=== PATIENT | male | born 1975 | race Caucasian/White ===

== ENCOUNTER 2020-03-07 11:22 | Emergency (ER) | payer OTHER, SELFPAY ==
[2020-03-07 11:34] VITALS: BP 131/88; PULSE 109; RESP 18; TEMP 36.6; O2SAT 98
--- NOTE | 2020-03-07 11:39 | ED.MALEGU ---
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 Patient states he was treated twice in the recent past for mild urinary frequency and testicular discomfort, with routine courses of Septrax2. He complains of a weeklong history of bilateral, right > left inguinal testicular discomfort , after initial complete improvement with antibiotics 3 weeks ago. His GI- history is remarkable that he gets your yearly colonoscopies for polyps and has been told he has anal fissure-for which he would like pain cream refill. No fever, LBP, dysuria, discharge, sexual activity. Record review [by phoning PMD] indicates that his initial urinalysis was negative, culture was not done. Patient advised to follow-up with urology as scheduled and his PMD Related Data Allergies Allergy/AdvReac Type Severity Reaction Status Date / Time No Known Allergies Allergy Verified 03/07/20 11:39 Review of Systems Review of Systems: Narrative: General/Constitutional: No weight loss,fever Eyes: N0: Redness,discharge Ears/Nose/Throat: No: Epistaxis,ear discharge Respiratory: Denies: Hemoptysis Gastrointestinal: No Vomiting, Bleeding-rectal Skin: No Lumps, eruption Neurologic: No Focal Weakness,Sz Hematologic: Denies: Petechiae/Purpura Psychiatric: No: Suicida ideationl All Other Systems: Reviewed and Negative PMFSH Comments At time of signature, agree with nursing past medical, surgical, social and family history. There is no relevant family history pertinent to the presenting complaint Exam Narrative: Exam Narrative: General Appearance: Well appearing, Conjunctiva clear Ears: External ear normal Nose: Normal nose Mouth/Throat: Normal appearing, Normal lips Neck: Supple Respiratory: Airway patent, No respiratory distress Cardiovascular: RRR GI-: Soft, Non-tender; bilateral descended testicles, circumcised phallus, no inguinal hernia, testes nontender, no IH Musculoskeletal: Full ROM Skin: Warm, Dry, only scant inguinal nodes; old midline healing anal fissure Neurological: A&O x3, Normal affect, sl anxious mood Course Vital Signs Vital signs: Vital Signs Temperature 97.8 F 03/07/20 11:34 Pulse Rate 109 H 03/07/20 11:34 Respiratory Rate 18 03/07/20 11:34 Blood Pressure 131/88 03/07/20 11:34 Pulse Oximetry 98 03/07/20 11:34 Temperature 97.8 F 03/07/20 11:34 Pulse Rate 109 H 03/07/20 11:34 Respiratory Rate 18 03/07/20 11:34 Blood Pressure 131/88 03/07/20 11:34 Pulse Oximetry 98 03/07/20 11:34 MDM - Male Genitourinary Lab Data Labs: Urine Glucose Negative Reference Range: Negative Urine Bilirubin Negative Reference Range: Negative Urine Ketone Negative Reference Range: Negative Urine Specific [place] 1.015 Reference Range:1.001-1.035 Urine Blood Negative Reference Range: Negative * * Urine pH 6.0 Reference Range: 5.0-9.0 Urine Protein Negative Reference Range: Negative Urine Urobilinogen 0.2 Reference Range: 0.2-1.0 Urine Nitrate Negative Reference Range: Negative
== END 2020-03-07 12:39 | disposition home or self-care (01) ==
PROVIDERS: Emergency Provider Emergency Medicine; PCP Family Medicine
DX: K60.2 Anal fissure, unspecified (principal); N50.811 Right testicular pain
CPT/HCPCS: 81003; 87086; 99213; G0463

== ENCOUNTER 2021-07-25 17:56 | Emergency (ER) | payer OTHER, SELFPAY ==
[2021-07-25 17:59] VITALS: BP 109/70; PULSE 78; RESP 14; TEMP 37; O2SAT 100
[2021-07-25 18:36] LABS: Basophils Percent Auto 0.6 % (0.2-1.2); Eosinophils Absolute Auto 0.2 K/mm3 (0-0.3); Eosinophils Percent Auto 3.9 % (0-4.4); Hematocrit 43.5 % (42.0-52.0); Hemoglobin 14.4 g/dL (14.0-18.0); Immature Granulocyte Absolute 0.01 K/mm3 (0.00-0.031); Immature Granulocyte Percent A 0.2 % (0-0.5); Lymphocytes Absolute Auto 1.34 K/mm3 (0.9-3.2); Lymphocytes Percent Auto 26.1 % (18.3-44.2); Mean Corpuscular HGB Conc 33.1 g/dl (32-36); Mean Corpuscular Hemoglobin 28.1 pg (26-34); Mean Platelet Volume 8.4 fl (7.4-10.4); Monocytes Absolute Auto 0.9 K/mm3 (0.1-0.6); Monocytes Percent Auto 17.7 % (2.6-8.5); Neutrophils Absolute Auto 2.7 K/mm3 (1.3-6.7); Neutrophils Percent Auto 51.5 % (45.5-73.1); Platelet Count Result 379 k/mm3 (150-375); Red Blood Count 5.12 M/mm3 (4.6-6.20); Red Cell Distribution Width 13.3 % (11.5-14.5); White Blood Count 5.1 K/mm3 (4.5-10.0)
[2021-07-25 18:46] LABS: Alanine Aminotransferase 33 U/L (4-50); Albumin Level 4.4 g/dL (3.5-5.1); Alkaline Phosphatase 130 U/L (38-126); Anion Gap 8 mmol/L (8-16); Aspartate Amino Transferase 24 U/L (17-59); Bilirubin,Total 0.5 mg/dL (0.2-1.3); Blood Urea Nitrogen 8 mg/dL (9-20); Calcium 8.9 mg/dL (8.4-10.2); Carbon Dioxide 23 mmol/L (22-30); Chloride 102 mmol/L (98-107); Estimated CRCL calculation 96 ml/min; Estimated Glomerular Filt Rate > 60; Glucose 108 mg/dL (65-110); Lipase 34 U/L (23-300); Potassium 3.6 mmol/L (3.4-5.0); Sodium 133 mmol/L (137-145)
--- NOTE | 2021-07-25 19:08 | ED.NAVMDI ---
HPI - Nausea/Vomiting/Diarrhea General Chief complaint: Nausea/Vomiting/Diarrhea Stated complaint: abdominal pain, n/v/d Time Seen by Provider: 07/25/21 18:41 Source: patient Mode of arrival: ambulatory Limitations: no limitations History of Present Illness HPI Narrative: 46-year-old male presents today with complaints of diarrhea. Patient states 3 to 4 days ago he was constipated and took 3 laxatives. Patient is unsure of which laxative it was. He thinks it was either pink or red in color. Prior to laxatives working patient had a bowel movement on his own. Next morning he woke up and had multiple episodes of diarrhea. And has since then. Patient has noted decreased appetite. Denies any vomiting today. And denies abdominal pain. Patient denies cough, runny nose, sore throat, fevers, but after some thought endorses contact with mother who just was diagnosed with gastroenteritis. Patient denies any abdominal surgeries. Related Data Allergies Allergy/AdvReac Type Severity Reaction Status Date / Time No Known Allergies Allergy Verified 07/25/21 19:42 Review of Systems Review of Systems: CONSTITUTIONAL: Denies fever, chills, or sweats. EYES: Denies visual changes, redness, or discharge. ENT: Denies rhinorrhea, congestion, sore throat, or otalgia. CARDIOVASCULAR: Denies chest pain, palpitations, or edema. RESPIRATORY: Denies cough or dyspnea. GASTROINTESTINAL: Diarrhea. Pain and cramping with bowel movement. Decreased oral intake. Denies vomiting, or diarrhea. GENITOURINARY: Denies dysuria or hematuria. SKIN: Denies rash or itching. MUSCULOSKELETAL: Denies back pain, joint pain, or myalgia. NEUROLOGIC: Denies headache, numbness, dizziness, or weakness. PSYCHIATRIC: Denies anxiety or depression. Exam Narrative: GENERAL: Well-appearing, well-nourished, and in no acute distress. HEAD: Normocephalic, atraumatic. EYES: PERRLA and EOMI. ENT: Nares clear, no rhinorrhea or epistaxis. Mucous membranes moist. Oropharynx without tonsillar hypertrophy exudate or other lesions. Bilateral TMs pearly hough nonbulging NECK: Supple. No adenopathy or masses. No carotid bruits or JVD CHEST: Clear to auscultation. No respiratory distress. No wheezes rales or rhonchi HEART: Regular rate and rhythm. No murmur heard. Normal peripheral pulses. ABDOMEN: Soft, nontender, nondistended, normal active bowel sounds. EXTREMITIES: Normal range of motion. No edema. SKIN: Warm, dry, no rash. NEURO: No focal deficits. Alert and oriented x3. PSYCH: Normal mood and affect. Course Course Emergency Course: Patient improved after IV fluids and medication. Patient wanting food at current time. Patient to be discharged home or to push fluids. Zofran as needed for nausea. And diet as tolerated. Patient instructed to return with any new or worsening symptoms. Vital Signs Vital signs: Vital Signs Temperature 37.0 C 07/25/21 17:59 Pulse Rate 78 07/25/21 17:59 Respiratory Rate 14 07/25/21 17:59 Blood Pressure 109/70 07/25/21 17:59 Pulse Oximetry 100 07/25/21 17:59 Temperature 37.0 C 07/25/21 17:59 Pulse Rate 93 07/25/21 21:36 Respiratory Rate 18 07/25/21 21:36 Blood Pressure 115/70 07/25/21 21:36 Pulse Oximetry 100 07/25/21 21:36 MDM - Nausea/Vomiting/Diarrhea Differential Diagnosis Differential diagnosis: Likely traveler's diarrhea, gastroenteritis, dehydration and other (Medication reaction) Medical Records Attestation: I reviewed the patient's medical records. Lab Data Result diagrams: 07/25/21 18:15 07/25/21 18:15 Labs: Lab Results 07/25/21 07/25/21 07/25/21 Range/Units 18:15 18:15 19:44 WBC 5.1 (4.5-10.0) K/mm3 RBC 5.12 (4.6-6.20) M/mm3 Hgb 14.4 (14.0-18.0) g/dL Hct 43.5 (42.0-52.0) % MCV 85.0 (80-100) fl MCH 28.1 (26-34) pg MCHC 33.1 (32-36) g/dl RDW 13.3 (11.5-14.5) % Plt Count 379 H (150-375) k/mm3 MPV 8.4 (7.4-10.4)
[2021-07-25 19:36] VITALS: BP 122/79; PULSE 86; RESP 18; O2SAT 100
[2021-07-25] MEDS: LACTATED RINGERS 1,000 ML 999 ML IV CONT (19:42)
[2021-07-25 20:12] LABS: Add Urine Microscopic? YES; Appearance Urine Cloudy (Clear); Bilirubin Urine Negative (Negative); Blood Urine Negative (Negative); Color Urine Yellow (Yellow); Glucose Urine UA Negative (Negative); Ketones Urine Negative (Negative); Leukocyte Esterase Ur Negative LEU/UL (Negative); Mucus Urine Rare /lpf; Nitrate Urine Negative (Negative); Protein Urine Negative (Negative); RBC Urine 0-2 /hpf (0-2); Specific Grav Ur 1.018 (1.001-1.035); Urobilinogen Urine Negative mg/dL (<2.0); WBC Urine 0-3 /hpf
[2021-07-25] MEDS: ONDANSETRON INJ 4 MG/2 ML VIAL IV PUSH (20:37)
[2021-07-25] MEDS: KETOROLAC 15 MG/ML VIAL (*BKC) IV PUSH (20:37)
[2021-07-25 20:57] VITALS: BP 113/73; PULSE 99; RESP 17; O2SAT 100
[2021-07-25 21:36] VITALS: BP 115/70; PULSE 93; RESP 18; O2SAT 100
== END 2021-07-25 21:38 | disposition home or self-care (01) ==
PROVIDERS: Emergency Medicine; Emergency Provider Nurse Practitioner Family
DX: K52.9 Noninfective gastroenteritis and colitis, unspecified (principal)
CPT/HCPCS: 36415; 80053; 81001; 83690; 85025; 96361; 96374; 96375; 99284; J1885; J2405; J7120

== ENCOUNTER 2022-10-21 16:19 | Emergency (ER) | payer BC, OTHER, SELFPAY ==
[2022-10-21 16:21] VITALS: BP 114/71; PULSE 88; RESP 16; TEMP 36.4; O2SAT 100
--- NOTE | 2022-10-21 16:29 | ED.SKABFB ---
HPI - Skin/Abscess/Foreign Bdy General Chief complaint: Skin/Abscess/Foreign Body Stated complaint: Insect Bite Rt Forearm Time Seen by Provider: 10/21/22 16:27 Source: patient and RN notes reviewed Mode of arrival: ambulatory Limitations: dementia History of Present Illness HPI narrative: 47-year-old male presents with concern for a brown recluse spider bite. He reports he was killing brown recluse spiders yesterday, later in the day he noticed a red, tender, warm area on his right forearm. He denies black skin, fever, aches, chills, sweats, fatigue, joint pain. He denies any drainage from the bite area. He reports he has been applying ice MD complaint: insect bite/sting Related Data Allergies Allergy/AdvReac Type Severity Reaction Status Date / Time No Known Allergies Allergy Verified 10/21/22 16:19 Review of Systems Review of Systems: CONSTITUTIONAL: Denies malaise, chills, sweats, or fever. EYES: Denies redness, or discharge. ENT: Denies rhinorrhea, congestion, swollen lips, swollen tongue CARDIOVASCULAR: Denies chest pain, palpitations, or edema. RESPIRATORY: Denies cough or dyspnea. GASTROINTESTINAL: Denies abdominal pain, nausea, vomiting SKIN: Reports redness, swelling, warmth, tenderness of the right forearm at the bite site. Denies purulent drainage, vesicles, bullae, numbness, pain beyond proportion MUSCULOSKELETAL: Denies joint pain or myalgia. NEUROLOGIC: Denies headache. All systems reviewed & are unremarkable except as noted in HPI and below PMFSH Comments At time of signature, agree with nursing past medical, surgical, social and family history. There is no relevant family history pertinent to the presenting complaint Exam Narrative: GENERAL: Well-appearing, well-nourished, and in no acute distress. HEAD: Normocephalic, atraumatic. EYES: PERRLA, conjunctivae clear ENT: Mucous membranes moist. NECK: Supple. No lymphadenopathy CHEST: Clear to auscultation. No respiratory distress. HEART: Regular rate and rhythm. SKIN: Warm, dry. 10 cm by 5 cm area of Erythema, induration, tenderness, warmth with sharp margins noted to the right forearm without necrosis or scabbing. No vesicles, bullae, necrosis, ecchymosis, crepitus noted. NEURO: Alert and oriented x3. PSYCH: Normal mood and affect Course Course Emergency Course: Patient is aware of diagnosis, understands and agrees to treatment plan. Anticipatory guidance given. Patient agrees to follow-up as directed and is aware of reasons to seek care at the emergency department. Portions of this record may have been created with voice recognition software Level of Care: Express Care Visit Vital Signs Vital signs: Reviewed. MDM - Skin/Abscess/Foreign Bdy MDM Narrative Medical decision making narrative: Does not appear at this time to be erythema multiforme, bullous, SJS, TEN; no evidence at this time to suggest RMSF, NSTI, endocarditis or Lyme disease; patient looks well, nontoxic and is tolerating oral intake; no neurologic signs or symptoms; no headache, photophobia or neck pain; afebrile. Patient does not have history of of penetrating trauma, laceration, blunt trauma, recent surgery, immunosuppression, malignancy, obesity, alcoholism, corticosteroid use. Discussed the importance of follow-up, patient agrees; question, cellulitis versus necrotizing soft tissue infection versus abscess. Critical Care Time Critical Care Time Critical Care Time: No Discharge Plan Discharge Clinical Impression: Brown recluse spider bite Patient Disposition: Home, Self-Care Condition: Stable Instructions: Antibiotic Form, Brown Recluse Spider Bite (ED) Additional Instructions: Please follow up with your Primary Care Doctor within 48-72 hours - call for an appointment. Rest and elevate affected area; apply ice 5-6 times daily for 10-15 minutes. Take Motrin 600mg every 8 hours with food for pain. Please take Antibiotics as directed. If you experien
[2022-10-21] MEDS: TETANUS,DIPHTHERIA,AC PERTUSSIS ADULT (0.5 ML) BOOSTRIX IM (16:38)
== END 2022-10-21 16:48 | disposition home or self-care (01) ==
PROVIDERS: Emergency Provider Nurse Practitioner
DX: T63.331A Toxic effect of venom of brown recluse spider, accidental (unintentional), initial encounter (principal); Z23 Encounter for immunization
CPT/HCPCS: 90471; 90715; 99213; G0463

== ENCOUNTER 2022-11-09 03:09 | Emergency (ER) | payer OTHER, SELFPAY ==
--- NOTE | ~2022-11-09 | CT_ITS ---
CT of the Abdomen and Pelvis: Indication: Abdominal pain Technique: 2.5 mm axial scans were obtained through the abdomen and pelvis following intravenous adm inistration of 100 cc of Omnipaque 350. Dose reduction technique was used on this scan by utilizing a utomated exposure control and iterative reconstruction technique. The dose-length product (DLP) was 3 54.31 mGy-cm. Findings: Scans through the lung bases are unremarkable. The liver, spleen, pancreas, gallbladder, adrenals and kidneys are within normal limits. No evidence of aortic aneurysm. No lymphadenopathy. No bowel obstruction or bowel wall thickening. There is no evidence to suggest acute appendicitis. Images through the pelvis were performed. Urinary bladder unremarkable. Prostate gland and seminal ve sicles are unremarkable. No ascites. Impression: No significant abnormalities seen. Reviewed, dictated and finalized at [facility]. Impression: No significant abnormalities seen.
[2022-11-09 03:14] VITALS: BP 130/80; PULSE 113; RESP 16; O2SAT 100
--- NOTE | 2022-11-09 03:41 | ECG_ITS ---
Measurements Intervals [place] Rate: 97 P: 78 [place]: 143 QRS: 74 QRSD: 89 T: 83 QT: 364 QTc: 464 Interpretive Statements SINUS RHYTHM VENTRICULAR PREMATURE COMPLEX POSSIBLE LEFT ATRIAL ENLARGEMENT INCOMPLETE RIGHT BUNDLE BRANCH BLOCK LEFT VENTRICULAR HYPERTROPHY AND ST-T CHANGE MINIMAL Q WAVES- INF/LAT LEADS BASELINE WANDER- I, III BORDERLINE ECG NO PREVIOUS ECG AVAILABLE FOR COMPARISON Electronically Signed On 11-09-2022 6:52:10 CDT by Manuel Sanabria D.O.
[2022-11-09 03:42] LABS: Basophils Percent Auto 0.4 % (0.2-1.2); Eosinophils Absolute Auto 0.1 K/mm3 (0-0.3); Eosinophils Percent Auto 0.5 % (0-4.4); Hematocrit 42.6 % (42.0-52.0); Hemoglobin 13.8 g/dL (14.0-18.0); Immature Granulocyte Absolute 0.02 K/mm3 (0.00-0.031); Immature Granulocyte Percent A 0.2 % (0-0.5); Lymphocytes Absolute Auto 0.45 K/mm3 (0.9-3.2); Lymphocytes Percent Auto 4.9 % (18.3-44.2); Mean Corpuscular HGB Conc 32.4 g/dl (32-36); Mean Corpuscular Hemoglobin 28.1 pg (26-34); Mean Corpuscular Volume 86.8 fl (80-100); Mean Platelet Volume 8.9 fl (7.4-10.4); Monocytes Percent Auto 0.2 % (2.6-8.5); Neutrophils Absolute Auto 8.6 K/mm3 (1.3-6.7); Neutrophils Percent Auto 93.8 % (45.5-73.1); Platelet Count Result 284 k/mm3 (150-375); Red Blood Count 4.91 M/mm3 (4.6-6.20); Red Cell Distribution Width 13.2 % (11.5-14.5); White Blood Count 9.2 K/mm3 (4.5-10.0)
[2022-11-09 03:44] LABS: Appearance Urine Clear (Clear); Bilirubin Urine Negative (Negative); Blood Urine Negative (Negative); Color Urine Yellow (Yellow); Glucose Urine UA Negative (Negative); Ketones Urine Negative (Negative); Leukocyte Esterase Ur Negative LEU/UL (Negative); Nitrate Urine Negative (Negative); Protein Urine Negative (Negative); Specific Grav Ur 1.014 (1.001-1.035); Urobilinogen Urine 0.2 mg/dL (<2.0); pH Urine 5.5 (5.0-9.0)
--- NOTE | 2022-11-09 03:44 | ED.GENADULT ---
HPI - General Adult General Chief complaint: Abdominal Pain Stated complaint: abd pain Time Seen by Provider: 11/09/22 03:15 History of Present Illness HPI narrative: Patient 47-year-old gentleman who presents the emergency department with chief complaint of abdominal pain. The patient reports that about 1 AM started having pain in the right upper quadrant and epigastric region. The patient states it feels similar to whenever he does drink too much alcohol in the past patient states that he is not drinking anymore reports that he had no prior abdominal surgeries denies fever reports he has had some diarrhea for the last 24 hours and has had some nausea. Related Data Allergies Allergy/AdvReac Type Severity Reaction Status Date / Time No Known Allergies Allergy Verified 11/09/22 03:10 Review of Systems Review of Systems: A 10 system review of systems was completed on the patient and is negative except for what is stated in the HPI. Nursing and ancillary documentation was reviewed. Exam Narrative: GENERAL: Well-appearing, well-nourished, and in no acute distress. HEAD: Normocephalic, atraumatic. EYES: PERRLA and EOMI. ENT: Nares clear, no rhinorrhea or epistaxis. Mucous membranes moist. NECK: Supple. CHEST: Clear to auscultation. No respiratory distress. HEART: Regular rate and rhythm. No murmur heard. Normal peripheral pulses. ABDOMEN: Soft, tenderness to palpation of the right upper quadrant, nondistended, normal active bowel sounds. EXTREMITIES: Normal range of motion. No edema. SKIN: Warm, dry, no rash. NEURO: No focal deficits. Alert and oriented x3. PSYCH: Normal mood and affect. Course Vital Signs Vital signs: Vital Signs Pulse Rate 113 H 11/09/22 03:14 Respiratory Rate 16 11/09/22 03:14 Blood Pressure 130/80 11/09/22 03:14 Pulse Oximetry 100 11/09/22 03:14 Oxygen Delivery Room Air 11/09/22 03:14 Pulse Rate 113 H 11/09/22 03:14 Respiratory Rate 16 11/09/22 03:14 Blood Pressure 130/80 11/09/22 03:14 Pulse Oximetry 100 11/09/22 03:14 Oxygen Delivery Room Air 11/09/22 03:14 Medical Decision Making [facility] Narrative Medical decision making narrative: Differential diagnosis includes pancreatitis, cholecystitis, hepatitis. Laboratory studies showed a normal white blood cell count with a level of 9.2 electrolytes showed a lactate of 3.1 AST was 316 ALT was 154 alk phos is 139 bilirubin was normal at 0.7 troponin was less than 0.012 lipase was 113 urinalysis showed no acute abnormality CT scan of the abdomen pelvis showed no acute abnormality. Patient is feeling much better at this time Vital Signs Vital Signs: Vital Signs Pulse Rate 113 H 11/09/22 03:14 Respiratory Rate 16 11/09/22 03:14 Blood Pressure 130/80 11/09/22 03:14 Pulse Oximetry 100 11/09/22 03:14 Oxygen Delivery Room Air 11/09/22 03:14 Pulse Rate 113 H 11/09/22 03:14 Respiratory Rate 16 11/09/22 03:14 Blood Pressure 130/80 11/09/22 03:14 Pulse Oximetry 100 11/09/22 03:14 Oxygen Delivery Room Air 11/09/22 03:14 Lab Data 11/09/22 03:24 11/09/22 03:24 Labs: Lab Results 11/09/22 11/09/22 Range/Units 03:24 03:52 WBC 9.2 (4.5-10.0) K/mm3 RBC 4.91 (4.6-6.20) M/mm3 Hgb 13.8 L (14.0-18.0) g/dL Hct 42.6 (42.0-52.0) % MCV 86.8 (80-100) fl MCH 28.1 (26-34) pg MCHC 32.4 (32-36) g/dl RDW 13.2 (11.5-14.5) % Plt Count 284 (150-375) k/mm3 MPV 8.9 (7.4-10.4) fl Immature Gran % (Auto) 0.2 (0-0.5) % Neut % (Auto) 93.8 H (45.5-73.1) % Lymph % (Auto) 4.9 L (18.3-44.2) % [place] % (Auto) 0.2 L (2.6-8.5) % Eos % (Auto) 0.5 (0-4.4) % Baso % (Auto) 0.4 (0.2-1.2) % Lymph # (Auto) 0.45 L (0.9-3.2) K/mm3 [place] # (Auto) 0.0 L (0.1-0.6) K/mm3 Eos # (Auto) 0.1 (0-0.3) K/mm3 Baso # (Auto) 0.0 (0.0-0.1) K/mm3 Abs Immat Gran (auto) 0.02 (0.00-0.031) K/mm3 Abs
[2022-11-09] MEDS: ONDANSETRON INJ 4 MG/2 ML VIAL IV PUSH (03:48)
[2022-11-09] MEDS: SODIUM CHLORIDE 0.9% IV 1,000 ML 999 ML IV CONT (03:48)
[2022-11-09 03:52] LABS: Add Urine Microscopic? NO
[2022-11-09 03:59] LABS: Alanine Aminotransferase 154 U/L (6-50); Albumin Level 4.1 g/dL (3.5-5.1); Alkaline Phosphatase 139 U/L (38-126); Anion Gap 9 mmol/L (8-16); Aspartate Amino Transferase 316 U/L (17-59); Bilirubin,Total 0.7 mg/dL (0.2-1.3); Blood Urea Nitrogen 18 mg/dL (9-20); Carbon Dioxide 24 mmol/L (22-30); Chloride 104 mmol/L (98-107); Estimated CRCL calculation 98 ml/min; Estimated Glomerular Filt Rate > 60; Glucose 89 mg/dL (65-110); Lipase 113 U/L (23-300); Potassium 4.2 mmol/L (3.4-5.0); Sodium 137 mmol/L (137-145)
[2022-11-09 04:17] LABS: Troponin I < 0.012 ng/mL (0.000-0.034)
[2022-11-09 04:25] LABS: Lactic Acid Reflex 3.1 mmol/L (0.7-2.0)
[2022-11-09 04:27] LABS: Prothrombin Time 13.1 Seconds (11.1-14.7)
[2022-11-09 04:28] LABS: Partial Thromboplastin Time 25.4 SECONDS (22.3-36.8)
[2022-11-09 05:59] VITALS: BP 117/68; PULSE 87; RESP 16; O2SAT 100
[2022-11-09 07:15] LABS: Reflex Lactic Acid Yes or No Add Lactic
== END 2022-11-09 06:01 | disposition home or self-care (01) ==
PROVIDERS: Emergency Provider Emergency Medicine
DX: R10.84 Generalized abdominal pain (principal)
CPT/HCPCS: 36415; 74177; 80053; 81003; 83605; 83690; 84484; 85025; 85610; 85730; 93005; 96361; 96374; 99284; J2405; J7030; Q9967

== ENCOUNTER 2023-02-23 04:08 | Emergency (ER) | payer OTHER, SELFPAY ==
[2023-02-23 04:10] VITALS: BP 140/92; PULSE 84; RESP 15; TEMP 36.6; O2SAT 100
--- NOTE | 2023-02-23 04:44 | ED.GENADULT ---
HPI - General Adult General Chief complaint: Eye Problems Stated complaint: eye injury; poked in the eye with stick Time Seen by Provider: 02/23/23 04:20 History of Present Illness HPI narrative: Is a 47-year-old gentleman who presents the emergency department with chief complaint of right eye injury. Patient reports he was walking and walked into a branch of a tree and reports that there is redness of his conjunctive a patient reports that his eyes been watering and has had some mucoid discharge out of his eye. Patient reports his vision is his baseline patient reports his tetanus status is up-to-date. Related Data Allergies Allergy/AdvReac Type Severity Reaction Status Date / Time No Known Allergies Allergy Verified 02/23/23 04:21 Review of Systems Review of Systems: A 10 system review of systems was completed on the patient and is negative except for what is stated in the HPI. Nursing and ancillary documentation was reviewed. Exam Narrative: GENERAL: Well-appearing, well-nourished, and in no acute distress. HEAD: Normocephalic, atraumatic. EYES: PERRLA and EOMI. there is conjunctival injection of the right conjunctive at the 4 o'clock position there is negative Dede sign ENT: Nares clear, no rhinorrhea or epistaxis. Mucous membranes moist. NECK: Supple. CHEST: Clear to auscultation. No respiratory distress. HEART: Regular rate and rhythm. No murmur heard. Normal peripheral pulses. ABDOMEN: Soft, nontender, nondistended, normal active bowel sounds. EXTREMITIES: Normal range of motion. No edema. SKIN: Warm, dry, no rash. NEURO: No focal deficits. Alert and oriented x3. PSYCH: Normal mood and affect. Course Vital Signs Vital signs: Vital Signs Temperature 36.6 C 02/23/23 04:10 Pulse Rate 84 02/23/23 04:10 Respiratory Rate 15 02/23/23 04:10 Blood Pressure 140/92 H 02/23/23 04:10 Pulse Oximetry 100 02/23/23 04:10 Oxygen Delivery Room Air 02/23/23 04:10 Temperature 36.6 C 02/23/23 04:10 Pulse Rate 84 02/23/23 04:10 Respiratory Rate 15 02/23/23 04:10 Blood Pressure 140/92 H 02/23/23 04:10 Pulse Oximetry 100 02/23/23 04:10 Oxygen Delivery Room Air 02/23/23 04:10 Medical Decision Making MDM Narrative Medical decision making narrative: Differential diagnosis includes globe rupture, conjunctival abrasion, corneal abrasion There is no corneal uptake of fluorescein but there is a conjunctival abrasion present. There is a negative Dede sign pupil is reactive. Vital Signs Vital Signs: Vital Signs Temperature 36.6 C 02/23/23 04:10 Pulse Rate 84 02/23/23 04:10 Respiratory Rate 15 02/23/23 04:10 Blood Pressure 140/92 H 02/23/23 04:10 Pulse Oximetry 100 02/23/23 04:10 Oxygen Delivery Room Air 02/23/23 04:10 Temperature 36.6 C 02/23/23 04:10 Pulse Rate 84 02/23/23 04:10 Respiratory Rate 15 02/23/23 04:10 Blood Pressure 140/92 H 02/23/23 04:10 Pulse Oximetry 100 02/23/23 04:10 Oxygen Delivery Room Air 02/23/23 04:10 Discharge Plan Discharge Clinical Impression: Abrasion of conjunctiva, right Patient Disposition: Home, Self-Care Condition: Stable Instructions: Antibiotic Form, Corneal Abrasion (ED) Prescriptions: New polymyxin B sulf-trimethoprim [Polytrim] 10,000 unit- 1 mg/mL drops 1 drp RIGHT EYE Q3H 7 Days Qty: 10 0RF Rx Instructions: while awake; do not exceed 6 doses in 24 hours No Action amoxicillin-pot clavulanate 875-125 mg tablet 1 tablet PO Q12H 10 Days Qty: 20 0RF Follow-up/Referrals: [facility] [Outside] Marco A Saez MD [Physician] - PHYSICIAN,INTERLOCKING [employer]EMENT INSTALLER [Primary Care Provider] - Time of Disposition: 04:51
[2023-02-23] MEDS: POLYMYXIN/TRIMETHOPRIM OPHTH 10 ML DROPS 1 DROP RIGHT EYE (05:11)
== END 2023-02-23 05:16 | disposition home or self-care (01) ==
PROVIDERS: Emergency Provider Emergency Medicine
DX: S05.01XA Injury of conjunctiva and corneal abrasion without foreign body, right eye, initial encounter (principal); W22.8XXA Striking against or struck by other objects, initial encounter
CPT/HCPCS: 99283; A9270

== ENCOUNTER 2023-04-24 15:56 | Emergency (ER) | payer OTHER, SELFPAY ==
[2023-04-24 16:02] VITALS: BP 109/76; PULSE 90; RESP 16; TEMP 36; O2SAT 99
--- NOTE | 2023-04-24 16:35 | ED.DENTAL ---
HPI - Dental/Oral General Chief complaint: Dental/Oral Stated complaint: Dental Pain Time Seen by Provider: 04/24/23 16:25 Source: patient and RN notes reviewed Mode of arrival: ambulatory Limitations: no limitations History of Present Illness HPI Narrative: Patient presents today complaining of pain to her right upper tooth that has been broken for years. Pain has been present for the past week. No pain at this time, but pain is intermittent. He has tried no medication for symptoms prior to arrival. At this time he has no interest in seeing a dentist. Related Data Allergies Allergy/AdvReac Type Severity Reaction Status Date / Time No Known Allergies Allergy Verified 04/24/23 16:05 Review of Systems Review of Systems: CONSTITUTIONAL: Denies body aches, fever, chills, or sweats. EYES: Denies visual changes, redness, or discharge. ENT: Denies rhinorrhea, congestion, sore throat, or otalgia.+ tooth pain CARDIOVASCULAR: Denies chest pain, palpitations, or edema. RESPIRATORY: Denies cough or dyspnea. GASTROINTESTINAL: Denies abdominal pain, nausea, vomiting, or diarrhea. GENITOURINARY: Denies dysuria or hematuria. SKIN: Denies rash, itching, or wounds. MUSCULOSKELETAL: Denies back pain, joint pain, or myalgia. NEUROLOGIC: Denies headache, numbness, tingling, or weakness. PSYCH: Denies depression or anxiety. PMFSH Comments At time of signature, I have reviewed and agree with nursing past medical, surgical, social and family history unless otherwise noted. Please see nursing chart for further information. There is no relevant family history pertinent to the presenting complaint Exam Narrative: GENERAL: Well-appearing, well-nourished, and in no acute distress. HEAD: Normocephalic, atraumatic. EYES: EOMI. No redness or drainage. Conjunctivae normal. ENT: Mucous membranes pink and moist. Nares clear. No rhinorrhea. Large cavity in tooth 5. Mild surrounding swelling of the gingiva. No obvious periapical abscess. No trismus. No facial swelling. NECK: Normal AROM. CHEST: No respiratory distress. EXTREMITIES: Normal range of motion. No edema. SKIN: Warm, dry, no rash. Capillary refill normal. Normal skin turgor. NEURO: No focal deficits. Alert and oriented x3. Gait steady. PSYCH: Normal affect. No signs of depression or anxiety. Course Course Level of Care: Express Care Visit Vital Signs Vital signs: Vital Signs Temperature 96.8 F L 04/24/23 16:02 Pulse Rate 90 04/24/23 16:02 Respiratory Rate 16 04/24/23 16:02 Blood Pressure 109/76 04/24/23 16:02 Pulse Oximetry 99 04/24/23 16:02 Oxygen Delivery Room Air 04/24/23 16:02 Temperature 96.8 F L 04/24/23 16:02 Pulse Rate 90 04/24/23 16:02 Respiratory Rate 16 04/24/23 16:02 Blood Pressure 109/76 04/24/23 16:02 Pulse Oximetry 99 04/24/23 16:02 Oxygen Delivery Room Air 04/24/23 16:02 Reviewed MDM - Dental/Oral MDM Narrative Medical decision making narrative: Prescription for amoxicillin sent to pharmacy. Dental referrals provided. Anticipatory guidance given. Differential Diagnosis Differential diagnosis: Likely gingival abscess, dental caries, toothache and dental abscess Critical Care Time Critical Care Time Critical Care Time: No Discharge Plan Discharge Clinical Impression: Infected dental caries Patient Disposition: Home, Self-Care Condition: Stable Instructions: Antibiotic Form, Dental Abscess (ED) Additional Instructions: Please take the amoxicillin as prescribed until gone. Take Tylenol or ibuprofen at home for pain. See a dentist to have that tooth extracted. If you develop fever, difficulty opening her mouth, or significant facial swelling, please go to the ER immediately. Prescriptions: New amoxicillin 875 mg tablet 875 mg PO Q12H 10 Days Qty: 20 0RF Follow-up/Referrals: PHYSICIAN,[employer] [Primary Care Provider] - Time of Disposition: 16:39
== END 2023-04-24 16:40 | disposition home or self-care (01) ==
PROVIDERS: Emergency Provider Nurse Practitioner
DX: K02.9 Dental caries, unspecified (principal)
CPT/HCPCS: 99213; G0463

== ENCOUNTER 2023-08-09 16:00 | Emergency (ER) | payer BC, OTHER, SELFPAY ==
[2023-08-09 16:08] VITALS: BP 125/69; PULSE 81; RESP 18; TEMP 36.2; O2SAT 100
--- NOTE | 2023-08-09 16:44 | ED.DENTAL ---
HPI - Dental/Oral General Chief complaint: Dental/Oral Stated complaint: Infected Tooth Time Seen by Provider: 08/09/23 16:37 Source: patient, RN notes reviewed and old records reviewed Mode of arrival: ambulatory Limitations: no limitations History of Present Illness HPI Narrative: Patient presents today complaining of dental pain in the left lower and right upper areas. Patient was seen several months ago at [facility] in treated for similar symptoms with a course of amoxicillin. States pain did not completely resolve with a course of amoxicillin. He has not followed up with a dentist. He has been taking aspirin, Tylenol, and Excedrin with some mild relief. Denies shortness of breath, difficulty swallowing, fever Related Data Allergies Allergy/AdvReac Type Severity Reaction Status Date / Time No Known Allergies Allergy Verified 08/09/23 16:22 Review of Systems Review of Systems: CONSTITUTIONAL: Denies body aches, fever, chills, or sweats. EYES: Denies visual changes, redness, or discharge. ENT: Denies rhinorrhea, congestion, sore throat, or otalgia.+ tooth pain CARDIOVASCULAR: Denies chest pain, palpitations, or edema. RESPIRATORY: Denies cough or dyspnea. GASTROINTESTINAL: Denies abdominal pain, nausea, vomiting, or diarrhea. GENITOURINARY: Denies dysuria or hematuria. SKIN: Denies rash, itching, or wounds. MUSCULOSKELETAL: Denies back pain, joint pain, or myalgia. NEUROLOGIC: Denies headache, numbness, tingling, or weakness. PSYCH: Denies depression or anxiety. PMFSH Comments At time of signature, I have reviewed and agree with nursing past medical, surgical, social and family history unless otherwise noted. Please see nursing chart for further information. There is no relevant family history pertinent to the presenting complaint Exam Narrative: GENERAL: Well-appearing, well-nourished, and in no acute distress. HEAD: Normocephalic, atraumatic. EYES: EOMI. No redness or drainage. Conjunctivae normal. ENT: Mucous membranes pink and moist. Pain to tooth 18.. Fluid-filled blister above tooth 5.. Tooth 5 is absent. No trismus. No facial swelling. NECK: Normal AROM. CHEST: No respiratory distress. EXTREMITIES: Normal range of motion. No edema. SKIN: Warm, dry, no rash. Capillary refill normal. Normal skin turgor. NEURO: No focal deficits. Alert and oriented x3. Gait steady. PSYCH: Normal affect. No signs of depression or anxiety. Course Course Level of Care: Express Care Visit Vital Signs Vital signs: Vital Signs Temperature 97.1 F L 08/09/23 16:08 Pulse Rate 81 08/09/23 16:08 Respiratory Rate 18 08/09/23 16:08 Blood Pressure 125/69 08/09/23 16:08 Pulse Oximetry 100 08/09/23 16:08 Oxygen Delivery Room Air 08/09/23 16:08 Temperature 97.1 F L 08/09/23 16:08 Pulse Rate 81 08/09/23 16:08 Respiratory Rate 18 08/09/23 16:08 Blood Pressure 125/69 08/09/23 16:08 Pulse Oximetry 100 08/09/23 16:08 Oxygen Delivery Room Air 08/09/23 16:08 Reviewed MDM - Dental/Oral MDM Narrative Medical decision making narrative: Patient has been once again provided with a list of dentists in the area. Prescription for Augmentin sent to pharmacy. Anticipatory guidance given. Differential Diagnosis Differential diagnosis: Likely gingival abscess, dental caries, toothache and dental abscess Critical Care Time Critical Care Time Critical Care Time: No Discharge Plan Discharge Clinical Impression: Dental abscess Patient Disposition: Home, Self-Care Condition: Stable Instructions: Antibiotic Form, Dental Abscess (ED) Additional Instructions: Please take the Augmentin as prescribed until gone. Take [id number] medication for symptoms if needed. Follow-up with a dentist for further evaluation, as dental care cannot be provided at [facility]. Your blood pressure was elevated above 120/80 today at Urgent Care. This puts you above the threshold fo
== END 2023-08-09 16:48 | disposition home or self-care (01) ==
PROVIDERS: Emergency Provider Nurse Practitioner
DX: K04.7 Periapical abscess without sinus (principal)
CPT/HCPCS: 99213; G0463

== ENCOUNTER 2023-11-25 08:44 | Emergency (ER) | payer BC, OTHER, SELFPAY ==
[2023-11-25 08:53] VITALS: BP 109/69; PULSE 86; RESP 20; TEMP 36.4; O2SAT 100
--- NOTE | 2023-11-25 09:05 | ED.DENTAL ---
HPI - Dental/Oral General Chief complaint: Dental/Oral Stated complaint: Tooth/Gum Pain Time Seen by Provider: 11/25/23 09:05 Source: patient, RN notes reviewed and old records reviewed Mode of arrival: ambulatory Limitations: no limitations History of Present Illness HPI Narrative: 48-year-old male presents to the [facility] with ongoing dental infection/abscess. Patient denies any pain. No treatment prior to arrival Patient was evaluate August 09, 2023 and April 24, 2023 for the same complaint. Treatment prior to arrival: none Related Data Allergies Allergy/AdvReac Type Severity Reaction Status Date / Time No Known Allergies Allergy Verified 11/25/23 08:47 Review of Systems Review of Systems: All systems reviewed & are unremarkable except as noted in HPI and below Constitutional: Constitutional: Reports no additional constitutional complaints Eyes: Eyes: Reports no additional eye complaints ENT: Reports as per HPI and Reports mouth lesions Cardiovascular: Cardiovascular: Reports no additional cardiovascular complaints, Denies chest pain and Denies dyspnea Respiratory: Respiratory: Reports no additional respiratory complaints, Denies chest congestion, Denies cough and Denies dyspnea Gastrointestinal: Gastrointestinal: Reports no additional gastrointestinal complaints, Denies abdominal pain, Denies nausea and Denies vomiting Musculoskeletal: Musculoskeletal: Reports no additional musculoskeletal complaints Integumentary/Breasts: Skin/Breast: Reports system reviewed and no additional complaints, except as docu Neurologic: Reports system reviewed and no additional complaints, except as documented Psychiatric: Psychiatric: Reports no additional psychiatric complaints Allergic/Immunologic: Allergic/Immunologic: Reports no additional allergic/immunologic complaints PMFSH Past Medical History Medical History (Updated 11/25/23 @ 09:36 by Evie Tavares APRN) Patient denies medical problems Comments At the time of my signature, I reviewed and agree with the nursing past medical, surgical, social, and family history. There is no relevant family history pertinent to the patient complaint. Exam Const: General: cooperative, healthy appearing, comfortable, no acute distress, well developed, alert and well nourished Nutritional Appearance: well nourished Orientation/consciousness: patient oriented x3 Limitations: no limitations HENMT: Head: normal to inspection Ears: hearing grossly normal bilaterally, external ears normal, TM's normal bilaterally, mastoids normal and no periauricular adenopathy Face/Nose/Sinus: Normal external nose present, Normal nares present, Normal nasal mucous membranes and turbinates present, normal facial exam and face symmetric Face and sinus: normal facial exam and face symmetric Mouth: Yes Normal oral and palatal mucosa present, Yes lip normal and Yes tongue normal Teeth and gingiva: abnormal tooth and associated gingiva, caries and fair dentition Throat: posterior oropharynx normal, uvula midline and no uvular edema Eyes: General: appearance normal, both eyes and all related structures Alignment and Position: alignment normal Periorbital: periorbital findings normal Neck: Neck: normal visual inspection, full ROM, no lymphadenopathy and no meningeal signs Chest: Chest palpation & inspection: normal inspection of the chest Resp: Effort & Inspection: normal respiratory effort and able to speak in complete sentences Cardio: Rate: regular rate Skin: General skin exam: normal color and no rashes or lesions noted Lesions: no lesions Rashes: no rashes Trauma: no lacerations or abrasions Wounds: no wounds Neuro: General: patient oriented x3, gait normal, tone normal, moves all extremities and no meningeal signs Cranial nerves: Yes Equal, round and reactive pupils present Cognition (Neuro): normal cognition Speech: normal speech Gait exam (Neuro): Normal gait present Extrem: Gener
== END 2023-11-25 09:20 | disposition home or self-care (01) ==
PROVIDERS: Emergency Provider Nurse Practitioner
DX: K04.7 Periapical abscess without sinus (principal); K02.9 Dental caries, unspecified
CPT/HCPCS: 99213; G0463

== ENCOUNTER 2023-11-29 13:37 | Emergency (ER) | payer OTHER, SELFPAY ==
[2023-11-29 14:02] VITALS: BP 109/75; PULSE 92; RESP 18; TEMP 36.8; O2SAT 99
[2023-11-29 15:27] LABS: Glucose Point of Care 99 mg/dl (65-105)
--- NOTE | 2023-11-29 15:37 | ED.DENTAL ---
HPI - Dental/Oral General Chief complaint: Dental/Oral <Syeda Dunn PA-C - Last Filed: 11/29/23 19:28> Stated complaint: tooth abcess getting worse <GINA Pemberton Last Filed: 11/29/23 19:28> Time Seen by Provider: 11/29/23 14:15 <GINA Pemberton Last Filed: 11/29/23 19:28> Source: patient <GINA Pemberton Last Filed: 11/29/23 19:28> Mode of arrival: ambulatory <GINA Pemberton Last Filed: 11/29/23 19:28> Limitations: no limitations <GINA Pemberton Last Filed: 11/29/23 19:28> History of Present Illness HPI Narrative: Patient is a 48-year-old male who presents the ED with concern for a dental abscess. Patient reports he has noticed an area of fullness to his right upper gum line above a previously extracted tooth at tooth 6. He states this area has been present for the last 1 month. Denies any pain. Denies drainage. Denies changes over the last 1 month. He then states over the last 4 days, he has noticed an area of fullness to the outer gumline along tooth 17. He denies pain associated with this lesion either, but was seen at urgent care and started on clindamycin. He states the area seemed increasingly swollen today any has tenderness throughout his left cervical nodes, which prompted him to return to urgent care. They increased his clindamycin from 3 times daily to 4 times daily and referred him here for further evaluation. Patient states the area has since gone down significantly in size. He denies pain, denies difficulty breathing or swallowing, fevers, vomiting. He is scheduled to follow-up with a dentist next week. <GINA Pemberton Last Filed: 11/29/23 19:28> Related Data Allergies/adverse reactions: Allergies Allergy/AdvReac Type Severity Reaction Status Date / Time No Known Allergies Allergy Verified 11/29/23 13:38 <GINA Pemberton Last Filed: 11/29/23 19:28> Review of Systems Review of Systems: CONSTITUTIONAL: Denies fever, chills, or sweats. ENT: See HPI RESPIRATORY: Denies dyspnea. GASTROINTESTINAL: Denies abdominal pain, nausea, vomiting. <Syeda Dunn PA-C - Last Filed: 11/29/23 19:28> All systems reviewed & are unremarkable except as noted in HPI and below <Syeda Dunn PA-C - Last Filed: 11/29/23 19:28> PMFSH Past Medical History Medical History: Medical History Patient denies medical problems <Syeda Dunn PA-C - Last Filed: 11/29/23 19:28> Exam Narrative: GENERAL: Well appearing, well-nourished, non-toxic, in no acute distress. HEAD: Normocephalic, atraumatic. ENT: Scattered dental caries, but no diffuse decay. Previous dental extraction at site # 6 with small almost pinpoint circular well circumscribed lesion along upper gumline, minimally erythematous, no bleeding or appreciable fluctuance. No tenderness. Area of fullness/induration to L lower lateral gumline outside of tooth #17. Minimal bleeding present, no appreciable fluctuance, no tenderness. No stridor or trismus. No malocclusion. Maintaining secretions. RESPIRATORY: Airway patent, respirations nonlabored. CARDIOVASCULAR: Regular rate and rhythm MUSCULOSKELETAL: Moves all extremities. No gross deformities. SKIN: Warm, dry, normal color. NEURO: A&O X3. Speech clear. PSYCHIATRIC: Appropriate mood and affect. Normal interaction. <Syeda Dunn PA-C - Last Filed: 11/29/23 19:28> Course [employer]/PA Physician Supervision For this patient encounter, I reviewed the [employer] or PA documentation, treatment plan, and medical decision making; and I had [id number] time with this patient. <Arvin Rodarte MD - Last Filed: 11/30/23 07:39> Vital Signs Vital signs: Vital Signs Temperature 98.3 F 11/29/23 14:02 Pulse Rate 92 11/29/23 14:02 Respiratory Rate 18 11/29/23 14:02
[2023-11-29 15:46] VITALS: BP 126/75
== END 2023-11-29 15:46 | disposition home or self-care (01) ==
PROVIDERS: Emergency Provider Physician Assistant
DX: K04.7 Periapical abscess without sinus (principal); K06.8 Other specified disorders of gingiva and edentulous alveolar ridge
CPT/HCPCS: 82948; 99283; A9270

== ENCOUNTER 2024-11-20 14:42 | Emergency (ER) | payer OTHER, SELFPAY ==
[2024-11-20 14:49] VITALS: BP 107/76; PULSE 82; RESP 16; TEMP 36.8; O2SAT 100
--- NOTE | 2024-11-20 14:50 | ED.WOUNDLAC ---
HPI - Wound/Laceration General Chief Complaint: Wound/Laceration Stated Complaint: dog scratch Time Seen by Provider: 11/20/24 14:45 Source: patient Mode of arrival: ambulatory Limitations: no limitations History of Present Illness HPI narrative: Patient is a 49-year-old male who presents for dog scratch on left forearm. Patient states the dog was going after his daughter and he got in between them. Denies any bite morin. Unknown if he is up-to-date on tetanus. Patient is familiar with dog. Related Data Allergies Allergy/AdvReac Type Severity Reaction Status Date / Time No Known Allergies Allergy Verified 11/20/24 14:59 Review of Systems Review of Systems: All systems reviewed & are unremarkable except as noted in HPI and below Constitutional: Constitutional: Denies body ache(s), Denies chills, Denies fatigue, Denies fever(s), Denies headache(s), Denies malaise and Denies weakness Eyes: Eyes: Denies blurry vision, Denies irritation and Denies loss of vision ENT: Denies otalgia, Denies headache(s), Denies nasal discharge, Denies sinus pain and Denies sore throat Cardiovascular: Cardiovascular: Denies chest pain, Denies irregular heart rhythm and Denies dyspnea Respiratory: Respiratory: Denies dyspnea Gastrointestinal: Gastrointestinal: Denies abdominal pain, Denies melena, Denies hematochezia, Denies diarrhea, Denies nausea and Denies vomiting Musculoskeletal: Musculoskeletal: Denies back pain, Denies myalgias and Denies arthralgias Integumentary/Breasts: Skin/Breast: Denies pruritus, Denies rash and Reports wounds Neurologic: Denies headache(s), Denies loss of vision and Denies weakness Psychiatric: Psychiatric: Reports no additional psychiatric complaints Endocrine: Endocrine: Denies fatigue PMFSH Past Medical History Medical History Patient denies medical problems Comments At time of signature, agree with nursing past medical, surgical, social and family history. There is no relevant family history pertinent to the presenting complaint. Exam Const: General: cooperative, healthy appearing, comfortable, no acute distress and well nourished Nutritional Appearance: well nourished Orientation/consciousness: patient oriented x3 Limitations: no limitations HENMT: Head: normal to inspection, normocephalic and atraumatic Ears: hearing grossly normal bilaterally and external ears normal Face/Nose/Sinus: Normal external nose present, normal facial exam and face symmetric Face and sinus: normal facial exam and face symmetric Mouth: Yes lip normal Eyes: General: appearance normal, both eyes and all related structures Alignment and Position: alignment normal and position normal Periorbital: periorbital findings normal Eyelids: eyelids normal Pupils: Equal, round and reactive pupils present EOM: EOMs intact bilaterally Neck: Neck: normal visual inspection, full ROM and supple Chest: Chest palpation & inspection: normal inspection of the chest Resp: Effort & Inspection: normal respiratory effort and able to speak in complete sentences Auscultation: clear to auscultation bilaterally Cardio: Rate: regular rate Rhythm: regular rhythm Heart sounds: S1 normal heart sound present and S2 normal heart sound present GI: Inspection: normal to inspection Skin: General skin exam: normal color and no rashes or lesions noted Full body images:  1. 10x1 cm superficial scratch with no areas of broken skin Neuro: General: patient oriented x3 and moves all extremities Cranial nerves: Yes Equal, round and reactive pupils present Speech: normal speech Gait exam (Neuro): Normal gait present Extrem: General: normal to inspection, full ROM and no edema Psych: Appearance: grossly normal and well kempt Mental Status: mental status grossly normal Speech and movement: Normal speech and movement present Affect: normal affect Attitude: cooperative Thought process: Normal thought process present Course Course Emergency Course: Patient is aware of diagnosis, understands and agrees to treatment plan. Anticipatory guidance given. Patient agrees to follow-up as directed and is aware of reasons to seek care at the emergency department. Portions of this record may have been created with voice recognition software Level of Care: Express Care Visit Vital Signs Vital signs: Vital Signs Temperature 36.8 C 11/20/24 14:49 Pulse Rate 82 11/20/24 14:49 Respiratory Rate 16 11/20/24 14:49 Blood Pressure 107/76 11/20/24 14:49 Pulse Oximetry 100 11/20/24 14:49 Oxygen Delivery Room Air 11/20/24 14:49 Temperature 36.8 C 11/20/24 14:49 Pulse Rate 82 11/20/24 14:49 Respiratory Rate 16 11/20/24 14:49 Blood Pressure 107/76 11/20/24 14:49 Pulse Oximetry 100 11/20/24 14:49 Oxygen Delivery Room Air 11/20/24 14:49 Reviewed MDM - Wound/Laceration MDM Narrative Medical decision making narrative: Tetanus last updated 10/21/22. Will empirically treat with antibiotics for exposure purposes. Pt well hydrated appearing, in no respiratory distress, hemodynamically stable. Recommend supportive care. The patient is stable at time of discharge the clinical impression was discussed and the patient was given the opportunity to ask questions, which were addressed as completely as possible given the information available at present. Anticipatory guidance and return to care precautions were discussed and the importance of primary care follow-up was stressed and encouraged. The patient voiced understanding of the plan, indications to return, and the need for follow-up. Exam findings show no acute concerns or changes Patient is appropriate for outpatient treatment and follow-up. Differential Diagnosis Differential diagnosis: Likely laceration and other (Dog scratch, dog bite) Medical Records Attestation: I reviewed the patient's medical records. Discharge Plan Discharge Clinical Impression: Dog scratch Patient Disposition: Home Condition: Stable Instructions: Acute Wounds (ED) Additional Instructions: 1) Please follow-up with your primary care doctor in the next 3-5 days if not improving. 2) If you have any worsening of symptoms or any other urgent concerns please go to the ER. 3) Please take medications as prescribed and continue taking your home medications as usual. 4) Please read and follow information included in discharge instructions. Patient Language: Zambian Prescriptions: New amoxicillin-pot clavulanate 875-125 mg tablet 1 tablet PO Q12H 7 Days Qty: 14 0RF Follow-up/Referrals: Pineda Field MD [Physician] - 3 Days ([facility] care) Time of Disposition: 15:13
== END 2024-11-20 15:20 | disposition home or self-care (01) ==
PROVIDERS: Emergency Provider Nurse Practitioner Family
DX: S50.812A Abrasion of left forearm, initial encounter (principal); W54.8XXA Other contact with dog, initial encounter
CPT/HCPCS: 99213; G0463